=== PATIENT | female | born 1990 | race Caucasian/White ===

== ENCOUNTER 2022-11-19 11:58 | Emergency (ER) | payer OTHER, SELFPAY ==
--- NOTE | ~2022-11-19 | XR_ITS ---
EXAMINATION: XR ANKLE, LEFT CLINICAL INFORMATION: Lateral ankle bruising and swelling. COMPARISON: None available. TECHNIQUE: AP, lateral, and mortise views of the left ankle. FINDINGS: Mild to moderate soft tissue swelling is seen more pronounced laterally. There is no acute fracture or dislocation. The distal tibia and fibula are intact. The tibiotalar joint space is unremarkable. The tarsal bones are normally aligned. XR/XR ankle LT 2V IMPRESSION: Mild to moderate soft tissue swelling more pronounced laterally without acute underlying osseous abnormality.
[2022-11-19 12:06] VITALS: BP 117/81; PULSE 88; RESP 16; TEMP 36.4; O2SAT 99; BMI 25.7
--- NOTE | 2022-11-19 12:51 | ED.LOWEXIN ---
HPI - Extremity Injury (Lower) General Chief Complaint: Extremity Injury, Lower Stated Complaint: ?L Ankle Sprain or Fracture Time Seen by Provider: 11/19/22 12:09 History of Present Illness HPI Narrative: Patient complains of left ankle injury last night when she twisted it, no other injury, she is able to walk on it but it is uncomfortable, denies numbness weakness or tingling denies any laceration, did not fall did not hit her head no neck pain no back pain no other extremity pains Related Data Previous Rx's Medication Instructions Recorded ibuprofen 600 mg tablet 600 mg PO Q6H PRN pain #20 tabs 11/19/22 Allergies Allergy/AdvReac Type Severity Reaction Status Date / Time No Known Allergies Allergy Verified 11/19/22 12:05 [facility] Past Medical History Source: nursing notes reviewed Social History Social History Advance Directives: No Advance Directives Information Provided: No Physical Exam Vital Signs: Vital Signs: Last Vital Signs Temp 97.5 F 11/19/22 12:06 Pulse 88 11/19/22 12:06 Resp 16 11/19/22 12:06 BP 117/81 11/19/22 12:06 Pulse Ox 99 11/19/22 12:06 O2 Del Method 11/19/22 12:06 BMI result Body Mass Index 25.7 General appearance no distress Head is normocephalic atraumatic Neck is supple nontender Respiratory no distress The back full range of motion Extremities the left ankle around lateral malleolus is tender swollen and ecchymotic, but there is full range of motion, skin is intact and neurovascular intact distal Course Course Course Narrative: X-ray of left ankle was negative, no fracture no acute bony injury, patient was given an Aircast she did not need crutches and was discharged from the emergency room with referral to orthopedics if needed Discharge Plan Discharge Clinical Impression: Ankle sprain and strain Patient Disposition: Home, Self-Care Additional Instructions: X-ray of the left ankle did not show any broken bone It is okay for activity as tolerated If not improved in 1 week follow with your doctor or orthopedist for further evaluation, most sprains get better over several weeks but have significant improvement within 1 week Return any time any worse condition or concerns Prescriptions: New ibuprofen 600 mg tablet 600 mg PO Q6H PRN (Reason: pain) Qty: 20 0RF Referrals: Wesley Urban MD [Physician] - (Left ankle injury) Interventions: ED Discharge Assessment Last Done: 11/19/22 13:06 Discharge Date/Time: 11/19/22 13:06
== END 2022-11-19 13:06 | disposition home or self-care (01) ==
PROVIDERS: Emergency Provider Emergency Medicine
DX: M25.572 Pain in left ankle and joints of left foot (principal)
CPT/HCPCS: 73600; 99282; 99283